=== PATIENT | female | born 1955 | race Caucasian/White ===

== ENCOUNTER 2017-10-18 18:19 | Emergency (ER) | payer MEDICARE ==
[2017-10-18] MEDS ORDERED: SODIUM CHLORIDE 0.9% 1,000 ML IV STA (20:14)
[2017-10-18] MEDS ORDERED: MECLIZINE 12.5 MG TAB PO STA (20:14)
[2017-10-18] MEDS ORDERED: KETOROLAC 30 MG/ML 1 ML VIAL IVP STA (20:30)
[2017-10-18] MEDS ORDERED: ONDANSETRON 4 MG/2 ML VIAL IVP STA (20:31)
--- NOTE | 2017-10-18 20:39 | ED ---
Headache HPI - General Chief Complaint: Headache Stated Complaint: Headache & vomiting Time Seen by Provider: 10/18/17 19:58 Source: RN notes reviewed, old records reviewed Mode of arrival: ambulatory Limitations: no limitations - History of Present Illness Initial Comments: This is a 62-year-old female presents emergency Department template of headache for the past 6 days, dizziness. She reports she has a cyst over the back of her scalp and is currently removed in 2 months. Patient states that nothing is able to keep her headache a day. Patient is concerned that she may have skin cancer on her scalp and that is also related to her headache. Patient reports she's been seen at [facility] for squamous cell carcinoma. Patient states that she feels very lightheaded. She denies any chest pain or shortness of breath. She reports she's had 6 episodes of vomiting today. - Related Data Home Medications Medication Instructions Recorded Confirmed DULoxetine HCL [Cymbalta] 120 mg PO DAILY 10/18/17 10/18/17 LORazepam [Ativan] 0.5 mg PO DAILY PRN 10/18/17 10/18/17 LORazepam [Ativan] 1 tab PO HS PRN 10/18/17 10/18/17 Naproxen Sodium [Aleve] 440 mg PO BID PRN 10/18/17 10/18/17 traZODone HCL [TraZODone HCl] 1 - 2 tab PO HS 10/18/17 10/18/17 Previous Rx's Medication Instructions Recorded Cephalexin [Keflex] 500 mg PO Q8HR #21 cap 10/18/17 HYDROcodone/APAP 5-325MG [[place] 1 tab PO Q6HR PRN #10 tab 10/18/17 5-325] Ondansetron Odt [Zofran Odt] 4 mg PO Q8HR PRN #12 tab 10/18/17 Allergies Allergy/AdvReac Type Severity Reaction Status Date / Time codeine Allergy Confusion Verified 10/18/17 20:39 diphenhydramine Allergy Confusion Verified 10/18/17 20:39 [From Benadryl] Review of Systems ROS Statement: Those systems with pertinent positive or pertinent negative responses have been documented in the HPI. ROS Other: All systems not noted in ROS Statement are negative. Past Medical History Past Medical History: Cancer Additional Past Medical History / Comment(s): hep C History of Any Multi-Drug Resistant Organisms: None Reported Past Surgical History: Section, Hysterectomy Past Psychological History: Depression Smoking Status: Current every day smoker Past Alcohol Use History: Occasional Past Drug Use History: None Reported General Exam - General Exam Comments Initial Comments: Is a well-appearing 62-year-old female. No acute distress. She does appear to be somewhat anxious. Limitations: no limitations General appearance: alert, in no apparent distress, anxious Head exam: Present: atraumatic, normocephalic, normal inspection. Absent: other (And is evidence of cysts over her scalp. A large erythematous cyst over the posterior scalp.) Eye exam: Present: normal appearance, PERRL, EOMI. Absent: scleral icterus, conjunctival injection, periorbital swelling ENT exam: Present: normal exam, mucous membranes moist Neck exam: Present: normal inspection. Absent: tenderness, meningismus, lymphadenopathy Respiratory exam: Present: normal lung sounds bilaterally Cardiovascular Exam: Present: regular rate, normal rhythm, normal heart sounds. Absent: systolic murmur, diastolic murmur, rubs, gallop, clicks GI/Abdominal exam: Present: soft, normal bowel sounds. Absent: distended, tenderness, guarding, rebound, rigid Extremities exam: Present: normal inspection, full ROM, normal capillary refill. Absent: tenderness, pedal edema, joint swelling, calf tenderness Back exam: Present: normal inspection Neurological exam: Present: alert, oriented X3, CN II-XII intact Psychiatric exam: Present: normal affect, normal mood Skin exam: Present: warm, dry, intact, normal color. Absent: rash Course Vital Signs 10/18/17 10/18/17 10/18/17 18:30 21:03 22:00 Temperature 98.5 F Pulse Rate 87 64 63 Respiratory 18 16 16 Rate Blood Pressure 150/67 141/83 O2 Sat by Pulse 98 100 98 Oximetry 10/18/17 22:55 Temperature 97.6 F Pulse Rate 62 Respiratory 18 Rate Blood Pressure 142/74 O2 Sat by Pulse 99 Oximetry Medical Decision Making - Medical Decision Making Is a 62-year-old female presents emergency Department with a chief complaint of a cyst over the back of her scalp, headache, occasional dizziness. Patient's EKG was reviewed and within normal limits. Troponin stated. All her lab work was reviewed and negative. She does have a very large cyst of the scalp. I did inject with lidocaine had some pus drainage from the area. Doesn't help with the patient on Keflex for possible cellulitis and infected cyst. Discussion is follow-up with a finance manager to have or other cyst removed in the back of her scalp. Patient has no neurological deficits, no meningeal signs. Her chest x-ray performed due to the occasional dizziness. There was some questionable lymphadenopathy or pulmonary vascular congestion. Recommended nonemergent CT. Patient was informed of this and discussed following up with her primary care provider in regards to further testing. Family understands treatment plan will comply. Return parameters were discussed. - Lab Data Result diagrams: 10/18/17 20:34 10/18/17 20:34 Lab Results 10/18/17 10/18/17 10/18/17 Range/Units 20:34 20:34 20:34 WBC 6.8 (3.8-10.6) k/uL RBC 4.11 (3.80-5.40) m/uL Hgb 13.6 (11.4-16.0) gm/dL Hct 40.1 (34.0-46.0) % MCV 97.6 (80.0-100.0) fL MCH 33.2 (25.0-35.0) pg MCHC 34.0 (31.0-37.0) g/dL RDW 13.2 (11.5-15.5) % Plt Count 154 (150-450) k/uL Neutrophils % 62 % Lymphocytes % 29 % Monocytes % 5 % Eosinophils % 3 % Basophils % 1 % Neutrophils # 4.2 (1.3-7.7) k/uL Lymphocytes # 2.0 (1.0-4.8) k/uL Monocytes # 0.4 (0-1.0) k/uL Eosinophils # 0.2 (0-0.7) k/uL Basophils # 0.1 (0-0.2) k/uL Sodium 139 (137-145) mmol/L Potassium 3.8 (3.5-5.1) mmol/L Chloride 109 H (98-107) mmol/L Carbon Dioxide 22 (22-30) mmol/L Anion Gap 8 mmol/L BUN 18 H (7-17) mg/dL Creatinine 0.84 (0.52-1.04) mg/dL Est GFR (MDRD) Af Amer >60 (>60 ml/min/1.73 sqM) Est GFR (MDRD) Non-Af >60 (>60 ml/min/1.73 sqM) Glucose 88 (74-99) mg/dL Calcium 9.7 (8.4-10.2) mg/dL Total Bilirubin 0.9 (0.2-1.3) mg/dL AST 24 (14-36) U/L ALT 23 (9-52) U/L Alkaline Phosphatase 57 (38-126) U/L Troponin I <0.012 (0.000-0.034) ng/mL Total Protein 7.7 (6.3-8.2) g/dL Albumin 4.5 (3.5-5.0) g/dL Urine Color Urine Appearance (Clear) Urine pH (5.0-8.0) Ur Specific [place] (1.001-1.035) Urine Protein (Negative) Urine Glucose (UA) (Negative) Urine Ketones (Negative) Urine Blood (Negative) Urine Nitrite (Negative) Urine Bilirubin (Negative) Urine Urobilinogen (<2.0) mg/dL Ur Leukocyte Esterase (Negative) Urine RBC (0-5) /hpf Urine WBC (0-5) /hpf Ur Squamous Epith Cells (0-4) /hpf Urine Bacteria (None) /hpf Hyaline Casts (0-2) /lpf Urine Mucus (None) /hpf Urine Opiates Screen (NotDetected) Ur Oxycodone Screen (NotDetected) Urine Methadone Screen (NotDetected) Ur Propoxyphene Screen (NotDetected) Ur Barbiturates Screen (NotDetected) U Tricyclic Antidepress (NotDetected) Ur Phencyclidine Scrn (NotDetected) Ur Amphetamines Screen (NotDetected) U Methamphetamines Scrn (NotDetected) U Benzodiazepines Scrn (NotDetected) Urine Cocaine Screen (NotDetected) U Marijuana (THC) Screen (NotDetected) 10/18/17 10/18/17 Range/Units 20:55 20:55 WBC (3.8-10.6) k/uL RBC (3.80-5.40) m/uL Hgb (11.4-16.0) gm/dL Hct (34.0-46.0) % MCV (80.0-100.0) fL MCH (25.0-35.0) pg MCHC (31.0-37.0) g/dL RDW (11.5-15.5) % Plt Count (150-450) k/uL Neutrophils % % Lymphocytes % % Monocytes % % Eosinophils % % Basophils % % Neutrophils # (1.3-7.7) k/uL Lymphocytes # (1.0-4.8) k/uL Monocytes # (0-1.0) k/uL Eosinophils # (0-0.7) k/uL Basophils # (0-0.2) k/uL Sodium (137-145) mmol/L Potassium (3.5-5.1) mmol/L Chloride (98-107) mmol/L Carbon Dioxide (22-30) mmol/L Anion Gap mmol/L BUN (7-17) mg/dL Creatinine (0.52-1.04) mg/dL Est GFR (MDRD) Af Amer (>60 ml/min/1.73 sqM) Est GFR (MDRD) Non-Af (>60 ml/min/1.73 sqM) Glucose (74-99) mg/dL Calcium (8.4-10.2) mg/dL Total Bilirubin (0.2-1.3) mg/dL AST (14-36) U/L ALT (9-52) U/L Alkaline Phosphatase (38-126) U/L Troponin I (0.000-0.034) ng/mL Total Protein (6.3-8.2) g/dL Albumin (3.5-5.0) g/dL Urine Color Yellow Urine Appearance Cloudy H (Clear) Urine pH 6.0 (5.0-8.0) Ur Specific [place] 1.022 (1.001-1.035) Urine Protein Trace H (Negative) Urine Glucose (UA) Negative (Negative) Urine Ketones Negative (Negative) Urine Blood Negative (Negative) Urine Nitrite Negative (Negative) Urine Bilirubin Negative (Negative) Urine Urobilinogen 4.0 (<2.0) mg/dL Ur Leukocyte Esterase Trace H (Negative) Urine RBC 5 (0-5) /hpf Urine WBC 5 (0-5) /hpf Ur Squamous Epith Cells 8 H (0-4) /hpf Urine Bacteria Occasional H (None) /hpf Hyaline Casts 6 H (0-2) /lpf Urine Mucus Moderate H (None) /hpf Urine Opiates Screen Not Detected (NotDetected) Ur Oxycodone Screen Not Detected (NotDetected) Urine Methadone Screen Not Detected (NotDetected) Ur Propoxyphene Screen Not Detected (NotDetected) Ur Barbiturates Screen Not Detected (NotDetected) U Tricyclic Antidepress Not Detected (NotDetected) Ur Phencyclidine Scrn Not Detected (NotDetected) Ur Amphetamines Screen Not Detected (NotDetected) U Methamphetamines Scrn Not Detected (NotDetected) U Benzodiazepines Scrn Detected H (NotDetected) Urine Cocaine Screen Not Detected (NotDetected) U Marijuana (THC) Screen Not Detected (NotDetected) 10/19/17 04:19 EKG shows sinus bradycardia 55 beats were minute.. 168 ms. QRS ration 88. QTQTC 300 438/419 [place]. No abscess elevation or T-wave inversion. No other atrial or ventricular arrhythmias. - Radiology Data Radiology results: report reviewed Chest x-ray shows no acute cardiopulmonary prominent. Left hilar prominence could relate to pulmonary arterial hypertension or adenopathy. Nonemergent CT thorax is recommended for further evaluation. Disposition Clinical Impression: Abscess, scalp Disposition: HOME SELF-CARE Condition: Good Instructions: Acute Headache (ED), Abscess Incision and Drainage (ED) Additional Instructions: Patient is to rest, follow-up with primary care provider as well as dermatology. Return to emergency department if any alarming signs or symptoms occur. Prescriptions: Cephalexin [Keflex] 500 mg PO Q8HR #21 cap HYDROcodone/APAP 5-325MG [[place] 5-325] 1 tab PO Q6HR PRN #10 tab PRN Reason: Pain Ondansetron Odt [Zofran Odt] 4 mg PO Q8HR PRN #12 tab PRN Reason: Nausea Referrals: Fabien Morejon DO [Primary Care Provider] - 1-2 days Jovan Borrero MD [REFERRING] - 1-2 days Time of Disposition: 22:35
[2017-10-18 20:48] LABS: Basophils # (A) 0.1 k/uL (0-0.2); Basophils % (A) 1 %; Eosinophils # (A) 0.2 k/uL (0-0.7); Eosinophils % (A) 3 %; HCT 40.1 % (34.0-46.0); HGB 13.6 gm/dL (11.4-16.0); Lymphocytes % (A) 29 %; MCH 33.2 pg (25.0-35.0); MCV 97.6 fL (80.0-100.0); Mean Platelet Volume 9.2; Monocytes # (A) 0.4 k/uL (0-1.0); Monocytes % (A) 5 %; Neutrophils # (A) 4.2 k/uL (1.3-7.7); Neutrophils % (A) 62 %; Platelet Count 154 k/uL (150-450); RBC 4.11 m/uL (3.80-5.40); RDW 13.2 % (11.5-15.5); WBC 6.8 k/uL (3.8-10.6)
[2017-10-18 20:57] LABS: ALT 23 U/L (9-52); AST 24 U/L (14-36); Albumin 4.5 g/dL (3.5-5.0); Alkaline Phosphatase 57 U/L (38-126); Anion Gap 8 mmol/L; Blood Urea Nitrogen 18 mg/dL (7-17); Calcium 9.7 mg/dL (8.4-10.2); Carbon Dioxide 22 mmol/L (22-30); Chloride 109 mmol/L (98-107); Glucose 88 mg/dL (74-99); Potassium 3.8 mmol/L (3.5-5.1); Sodium 139 mmol/L (137-145); Total Bilirubin 0.9 mg/dL (0.2-1.3); Total Protein 7.7 g/dL (6.3-8.2)
[2017-10-18 21:16] LABS: Appearance,Urine Cloudy (Clear); Bacteria,Urine Occasional /hpf; Bilirubin,Urine Negative (Negative); Blood,Urine Negative (Negative); Color,Urine Yellow; Glucose,Urine (UA) Negative (Negative); Hyaline Casts,Urine 6 /lpf (0-2); Ketones,Urine Negative (Negative); Leukocyte Esterase,Urine Trace (Negative); Mucus,Urine Moderate /hpf; Nitrite,Urine Negative (Negative); Protein,Urine Trace (Negative); RBC,Urine 5 /hpf (0-5); Specific Gravity,Urine 1.022 (1.001-1.035); Squamous Epithelial Cell,Urine 8 /hpf (0-4); WBC,Urine 5 /hpf (0-5)
[2017-10-18 21:55] LABS: Amphetamine Screen,Urine Not Detected (NotDetected); Barbiturate Screen,Urine Not Detected (NotDetected); Benzodiazepines Screen,Urine Detected (NotDetected); Cocaine Screen,Urine Not Detected (NotDetected); Methadone Screen, Urine Not Detected (NotDetected); Opiate Screen,Urine Not Detected (NotDetected); Oxycodone Screen, Urine Not Detected (NotDetected); Phencyclidine Screen,Urine Not Detected (NotDetected); Tricyclic Antidepressant,Urine Not Detected (NotDetected); Urn Cannabinoid Scrn Not Detected (NotDetected)
--- NOTE | 2017-10-18 22:00 | XR ---
EXAMINATION TYPE: XR chest 2V DATE OF EXAM: 10/18/2017 COMPARISON: NONE HISTORY: Cough and dizziness TECHNIQUE: Frontal and lateral views of the chest are obtained. FINDINGS: There is no focal air space opacity, pleural effusion, or pneumothorax seen. Left hilar pr ominence could relate to pulmonary arterial hypertension or adenopathy. The cardiac silhouette size i s within normal limits. The osseous structures are intact. Multilevel mild degenerative changes of the thoracic spine are noted. IMPRESSION: No acute cardiopulmonary process. Left hilar prominence could relate to pulmonary arteri al hypertension or adenopathy. Nonemergent CT thorax is recommended for further evaluation.
[2017-10-18 23:01] VITALS: BP 142/74; PULSE 62; RESP 18; TEMP 97.6
== END 2017-10-18 22:55 | disposition home or self-care (01) ==
LOC: EC 18:19
DX: L02.811 Cutaneous abscess of head [any part, except face] (principal); R11.2 Nausea with vomiting, unspecified; F32.9 Major depressive disorder, single episode, unspecified; F17.200 Nicotine dependence, unspecified, uncomplicated; Z85.828 Personal history of other malignant neoplasm of skin; Z79.899 Other long term (current) drug therapy; Z88.5 Allergy status to narcotic agent; Z88.8 Allergy status to other drugs, medicaments and biological substances
CPT/HCPCS: 99284; 96374; 96375; 96361; 36415; 93005; 80053; 84484; 85025; 81001; 80306; 71020; J2405; J1885

== ENCOUNTER → 2017-11-01 | Outpatient (CLI) | payer MEDICARE ==
--- NOTE | 2017-11-01 15:23 | CT ---
EXAMINATION TYPE: CT chest w con DATE OF EXAM: 11/01/2017 COMPARISON: X-ray 10/18/2017 HISTORY: Abnormal Xray per patient CT DLP: 489 mGycm Automated exposure control for dose reduction was used. CONTRAST: CT scan of the chest is performed with IV Contrast, patient injected with 100 mL of Omnipaque 300. FINDINGS: LUNGS: Minimal subsegmental consolidation seen in the right lung base medially. No pneumothorax or pl eural effusion. No consolidation. No overt failure. 6 mm subpleural nodule superior segment right low er lobe incidentally noted. Additional 3 mm nodule right upper lobe axial image 31. MEDIASTINUM: There are no greater than 1 cm hilar or mediastinal lymph nodes. No pericardial effusi on is seen. Aorta of normal caliber. Main pulmonary artery measures 1.9 cm. Maximal aortic dimension measures 3.2 x 3.1 cm OTHER: Hypertrophic and degenerative change spine. IMPRESSION: 1. There is a 6 mm right lower lobe pulmonary nodule subpleural location. Recommend 6 month follow-up to confirm stability
== END | disposition home or self-care (01) ==
LOC: RADCTMAIN 13:42
PROVIDERS: ATTEND Family Medicine
DX: R91.1 Solitary pulmonary nodule (principal); R59.0 Localized enlarged lymph nodes
CPT/HCPCS: 71260; Q9967

== ENCOUNTER 2017-12-13 19:33 | Emergency (ER) | payer MEDICARE ==
[2017-12-13 19:47] VITALS: RESP 20
[2017-12-13] MEDS ORDERED: LORazepam 2 MG/ML INJ IV STA (20:03)
[2017-12-13] MEDS ORDERED: LORazepam 2 MG/ML INJ IM STA (20:03)
--- NOTE | 2017-12-13 20:16 | ED ---
General Adult HPI - General Chief complaint: Fall Stated complaint: fall Time Seen by Provider: 12/13/17 19:47 Source: patient, RN notes reviewed, old records reviewed Mode of arrival: ambulatory Limitations: no limitations - History of Present Illness Initial comments: 62-year-old femalepast medical history presents for evaluation of head injury, and left wrist injury. Patient went to urgent care status post fall, while in the urgent care she did develop some posterior headache as well as some generalized shaking. She was alert during these episodes and does remember having the temperature is uncertain what this may have been. She is complaining of left knee pain left wrist pain and pain in her forehead. Uncertain if she lost consciousness. Patient believes there was momentary loss consciousness. There is no neck pain. No chest pain or abdominal pain. Patient is not on any anticoagulation. - Related Data Home Medications Medication Instructions Recorded Confirmed DULoxetine HCL [Cymbalta] 120 mg PO DAILY 10/18/17 12/13/17 LORazepam [Ativan] 0.5 mg PO DAILY PRN 10/18/17 12/13/17 LORazepam [Ativan] 1 tab PO HS 10/18/17 12/13/17 Naproxen Sodium [Aleve] 440 mg PO BID PRN 10/18/17 12/13/17 traZODone HCL [TraZODone HCl] 1 - 2 tab PO HS 10/18/17 12/13/17 Previous Rx's Medication Instructions Recorded HYDROcodone/APAP 5-325MG [[place] 1 tab PO Q6HR PRN #12 tab 12/13/17 5-325] Ibuprofen [Motrin] 600 mg PO Q8HR PRN #24 tab 12/13/17 Allergies Allergy/AdvReac Type Severity Reaction Status Date / Time codeine Allergy Confusion Verified 12/13/17 19:58 diphenhydramine Allergy Confusion Verified 12/13/17 19:58 [From Benadryl] Review of Systems ROS Statement: Those systems with pertinent positive or pertinent negative responses have been documented in the HPI. ROS Other: All systems not noted in ROS Statement are negative. Past Medical History Past Medical History: Cancer Additional Past Medical History / Comment(s): hep C History of Any Multi-Drug Resistant Organisms: None Reported Past Surgical History: Section, Hysterectomy Past Psychological History: Anxiety, Depression Smoking Status: Current every day smoker Past Alcohol Use History: Rare Past Drug Use History: None Reported General Exam Limitations: no limitations General appearance: alert, in no apparent distress Head exam: Present: normocephalic. Absent: atraumatic (Abrasion on the left zygomatic process) Eye exam: Present: normal appearance, PERRL, EOMI Neck exam: Present: normal inspection. Absent: tenderness, meningismus Respiratory exam: Present: normal lung sounds bilaterally. Absent: respiratory distress Cardiovascular Exam: Present: regular rate, normal rhythm GI/Abdominal exam: Present: soft. Absent: distended, tenderness Extremities exam: Present: other (Left knee: Abrasion, no bony tenderness. Left wrist: significant tenderness with any range of motion, there is some mild swelling at the wrist.) Neurological exam: Present: alert, oriented X3, CN II-XII intact. Absent: motor sensory deficit Psychiatric exam: Present: normal affect, normal mood Skin exam: Present: warm, dry, abrasion (Left zygomatic, left knee). Absent: cyanosis Course Vital Signs 12/13/17 19:41 Temperature 97 F L Pulse Rate 63 Respiratory 20 Rate Blood Pressure 170/77 O2 Sat by Pulse 100 Oximetry - Reevaluation(s) Reevaluation #1: 12/13/17 22:14 On reevaluation, patient is feeling better. She has persistent pain in the left hand and wrist EKG Findings - EKG Comments: EKG Findings:: EKG shows normal sinus rhythm, ventricular rate 70, UT interval 168, castration 82, QTC 438 no signs of ischemia Procedures - Orthopedic Splinting/Casting Injury #1 Side: left Upper Extremity Injury Location: hand Upper Extremity Immobilizer: ulnar gutter Additional Comments: Neurovascular exam is intact both pre-and post-splinting Medical Decision Making - Medical Decision Making 62-year-old female presenting status post fall with head injury and multiple abrasions, as well as left hand and wrist pain. CT is obtained, is negative for acute intracranial pathology. CT C-spine negative for fracture subluxation. Facial bone CT is negative for acute bony abnormality. Chest x- ray obtained, negative for acute findings. X-ray of the knee and pelvis are unremarkable. Laboratory studies include CBC CMP and urinalysis are within normal limits. Patient is placed in a splint for her fourth and fifth metacarpal fractures of the left hand. This is her primary pain complaint. Her tetanus is updated. She was prescribed pain medications and will follow-up with hand surgery regarding these fractures. - Lab Data Result diagrams: 12/13/17 20:12 12/13/17 20:12 Lab Results 12/13/17 12/13/17 12/13/17 Range/Units 20:12 20:12 20:12 WBC 8.9 (3.8-10.6) k/uL RBC 3.96 (3.80-5.40) m/uL Hgb 13.4 (11.4-16.0) gm/dL Hct 38.1 (34.0-46.0) % MCV 96.0 (80.0-100.0) fL MCH 33.8 (25.0-35.0) pg MCHC 35.2 (31.0-37.0) g/dL RDW 11.6 (11.5-15.5) % Plt Count 174 (150-450) k/uL Neutrophils % 66 % Lymphocytes % 27 % Monocytes % 5 % Eosinophils % 1 % Basophils % 1 % Neutrophils # 5.8 (1.3-7.7) k/uL Lymphocytes # 2.4 (1.0-4.8) k/uL Monocytes # 0.4 (0-1.0) k/uL Eosinophils # 0.1 (0-0.7) k/uL Basophils # 0.1 (0-0.2) k/uL Sodium 144 (137-145) mmol/L Potassium 3.7 (3.5-5.1) mmol/L Chloride 109 H (98-107) mmol/L Carbon Dioxide 19 L (22-30) mmol/L Anion Gap 16 mmol/L BUN 16 (7-17) mg/dL Creatinine 0.60 (0.52-1.04) mg/dL Est GFR (MDRD) Af Amer >60 (>60 ml/min/1.73 sqM) Est GFR (MDRD) Non-Af >60 (>60 ml/min/1.73 sqM) Glucose 81 (74-99) mg/dL Calcium 10.0 (8.4-10.2) mg/dL Magnesium 2.0 (1.6-2.3) mg/dL Total Bilirubin 1.3 (0.2-1.3) mg/dL AST 21 (14-36) U/L ALT 16 (9-52) U/L Alkaline Phosphatase 65 (38-126) U/L Total Protein 7.3 (6.3-8.2) g/dL Albumin 4.5 (3.5-5.0) g/dL Urine Color Light Yellow Urine Appearance Clear (Clear) Urine pH 7.0 (5.0-8.0) Ur Specific [place] 1.006 (1.001-1.035) Urine Protein Negative (Negative) Urine Glucose (UA) Negative (Negative) Urine Ketones 1+ H (Negative) Urine Blood Negative (Negative) Urine Nitrite Negative (Negative) Urine Bilirubin Negative (Negative) Urine Urobilinogen <2.0 (<2.0) mg/dL Ur Leukocyte Esterase Negative (Negative) Disposition Clinical Impression: Fall, Concussion, Facial abrasion, Metacarpal bone fracture Disposition: HOME SELF-CARE Condition: Good Instructions: Abrasion (ED), Concussion (ED), Hand Fracture (ED) Prescriptions: HYDROcodone/APAP 5-325MG [[place] 5-325] 1 tab PO Q6HR PRN #12 tab PRN Reason: Pain Ibuprofen [Motrin] 600 mg PO Q8HR PRN #24 tab PRN Reason: Pain Referrals: Fabien Morejon DO [Primary Care Provider] - 1-2 days Jhoan Pastrana DO [Doctor of Osteopathic Medicine] - 1-2 days Time of Disposition: 22:29
[2017-12-13 20:26] LABS: Appearance,Urine Clear (Clear); Bilirubin,Urine Negative (Negative); Blood,Urine Negative (Negative); Color,Urine Light Yellow; Glucose,Urine (UA) Negative (Negative); Ketones,Urine 1+ (Negative); Leukocyte Esterase,Urine Negative (Negative); Protein,Urine Negative (Negative); Specific Gravity,Urine 1.006 (1.001-1.035); Urobilinogen,Urine <2.0 mg/dL (<2.0)
[2017-12-13 20:29] LABS: Basophils # (A) 0.1 k/uL (0-0.2); Basophils % (A) 1 %; Eosinophils # (A) 0.1 k/uL (0-0.7); Eosinophils % (A) 1 %; HCT 38.1 % (34.0-46.0); HGB 13.4 gm/dL (11.4-16.0); Lymphocytes # (A) 2.4 k/uL (1.0-4.8); Lymphocytes % (A) 27 %; MCH 33.8 pg (25.0-35.0); MCHC 35.2 g/dL (31.0-37.0); Mean Platelet Volume 8.9; Monocytes # (A) 0.4 k/uL (0-1.0); Monocytes % (A) 5 %; Neutrophils # (A) 5.8 k/uL (1.3-7.7); Neutrophils % (A) 66 %; Platelet Count 174 k/uL (150-450); RBC 3.96 m/uL (3.80-5.40); RDW 11.6 % (11.5-15.5); WBC 8.9 k/uL (3.8-10.6)
[2017-12-13 20:36] LABS: ALT 16 U/L (9-52); AST 21 U/L (14-36); Albumin 4.5 g/dL (3.5-5.0); Alkaline Phosphatase 65 U/L (38-126); Anion Gap 16 mmol/L; Blood Urea Nitrogen 16 mg/dL (7-17); Carbon Dioxide 19 mmol/L (22-30); Chloride 109 mmol/L (98-107); Glucose 81 mg/dL (74-99); Potassium 3.7 mmol/L (3.5-5.1); Sodium 144 mmol/L (137-145); Total Bilirubin 1.3 mg/dL (0.2-1.3); Total Protein 7.3 g/dL (6.3-8.2)
--- NOTE | 2017-12-13 20:57 | CT ---
EXAMINATION TYPE: CT brain cspine wo con DATE OF EXAM: 12/13/2017 COMPARISON: NONE HISTORY: Fall. CT DLP: 1272.4 mGycm Automated exposure control for dose reduction was used. TECHNIQUE: CT scan of the head and cervical spine are performed without contrast. FINDINGS: There is no acute intracranial hemorrhage, mass effect, or midline shift identified. The ventricles and sulci are within normal limits in size. The globes are intact and the visualized sin uses are clear. Cervical spine is visualized in its entirety from C1 through upper thoracic levels and demonstrates s atisfactory alignment without evidence of acute fracture or dislocation. Prevertebral soft tissue ap pears within normal limits. The C1-C2 articulation is unremarkable. IMPRESSION: 1. There is no acute fracture or dislocation evident in the cervical spine. 2. No acute intracranial hemorrhage, mass effect, or midline shift is seen.
[2017-12-13] MEDS ORDERED: SODIUM CHLORIDE 0.9% 1,000 ML IV SCH (21:00)
--- NOTE | 2017-12-13 21:01 | CT ---
EXAMINATION TYPE: CT facial bones wo con DATE OF EXAM: 12/13/2017 COMPARISON: NONE HISTORY: Fall. CT DLP: 723.4 mGycm Automated exposure control for dose reduction was used. TECHNIQUE: CT scan of the sinuses is performed without contrast, axial images are obtained, coronal r eformatted images are also reviewed. FINDINGS: The examination of the facial skeleton and skull base is negative for fracture or malalignm ent. The orbits are intact. Paranasal sinuses and mastoid sinus air cells and middle ear cavities are clear. No incidental findings. IMPRESSION: NO ACUTE PROCESS.
--- NOTE | 2017-12-13 21:43 | XR ---
EXAMINATION: XR chest 2V DATE AND TIME: 12/13/2017 9:03 PM ORDERING PROVIDER: Jarret Vaca CLINICAL INDICATION: Pain after fall TECHNIQUE: PA and lateral COMPARISON: 10/18/2017 DESCRIPTION: The lungs are clear. The pleural spaces are negative. The cardiac silhouette is not enlarged. The mediastinal and pleural silhouettes are unremarkable. The skeletal structures are dated for fracture or malalignment. The soft tissues are unremarkable. IMPRESSION: NO ACUTE PROCESS.
--- NOTE | 2017-12-13 21:46 | XR ---
PROCEDURE: XR wrist complete LT-4 views DATE AND TIME: 12/13/2017 9:03 PM REFERRING PHYSICIAN: Jarret Vaca CLINICAL INDICATION: PHH, Pain TECHNIQUE: Department protocol. COMPARISON: None FINDINGS: There is evidence of fractures involving the base of the fourth and fifth metacarpals. 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 The soft tissues are unremarkable. IMPRESSION: Cannot exclude fractures involving the base of the fourth and fifth metacarpals. Dedicated hand radio graphs can further characterize.
--- NOTE | 2017-12-13 21:47 | XR ---
PROCEDURE: XR pelvis AP view DATE AND TIME: 12/13/2017 9:03 PM REFERRING PHYSICIAN: Jarret Vaca CLINICAL INDICATION: PHH, Pain TECHNIQUE: One view, AP. COMPARISON: None FINDINGS: There is no fracture or malalignment. The soft tissues are unremarkable. IMPRESSION: NO ACUTE PROCESS.
--- NOTE | 2017-12-13 21:48 | XR ---
PROCEDURE: XR knee complete LT - 3V DATE AND TIME: 12/13/2017 9:03 PM REFERRING PHYSICIAN: Jarret Vaca CLINICAL INDICATION: PHH, Pain TECHNIQUE: Department protocol. COMPARISON: None FINDINGS: There is no fracture or malalignment. The soft tissues are unremarkable. IMPRESSION: NO ACUTE PROCESS.
[2017-12-13] MEDS ORDERED: KETOROLAC 30 MG/ML 1 ML VIAL IVP STA (22:12)
[2017-12-13 22:21] VITALS: BP 141/80; PULSE 70; TEMP 97.8
== END 2017-12-13 23:04 | disposition home or self-care (01) ==
LOC: EC 19:33
DX: S62.315A Displaced fracture of base of fourth metacarpal bone, left hand, initial encounter for closed fracture (principal); S62.317A Displaced fracture of base of fifth metacarpal bone, left hand, initial encounter for closed fracture; S80.212A Abrasion, left knee, initial encounter; S00.81XA Abrasion of other part of head, initial encounter; F41.9 Anxiety disorder, unspecified; F32.9 Major depressive disorder, single episode, unspecified; F17.200 Nicotine dependence, unspecified, uncomplicated; Z85.9 Personal history of malignant neoplasm, unspecified; Z79.899 Other long term (current) drug therapy; Z88.5 Allergy status to narcotic agent; Z88.8 Allergy status to other drugs, medicaments and biological substances; W01.0XXA Fall on same level from slipping, tripping and stumbling without subsequent striking against object, initial encounter; Y92.89 Other specified places as the place of occurrence of the external cause
CPT/HCPCS: 99285 ×2; 29125 ×2; 96374 ×2; 96375 ×2; 96361 ×3; 96372 ×2; 36415; 93005; 80053; 83735; 85025; 81003; 72170; 73110; 73562; 71046; 72125; 70486; 70450; J2060; J1885

== ENCOUNTER → 2018-05-07 | Outpatient (CLI) | payer MEDICARE ==
--- NOTE | 2018-05-07 16:41 | CT ---
EXAMINATION TYPE: CT chest wo con DATE OF EXAM: 05/07/2018 COMPARISON: Prior chest CT November 01, 2017 HISTORY: Solitary pulmonary nodule CT DLP: 140.5 mGycm. Automated Exposure Control for Dose Reduction was Utilized. TECHNIQUE: CT scan of the thorax is performed without IV contrast. FINDINGS: LUNGS: Previously described 6 mm subpleural nodule posterior medial superior aspect right lower lobe is contiguous with the chest wall and has fat and soft tissue density measuring 9 x 4 mm current stud y image 35 not significantly changed in size or appearance from prior exam strongly favored benign. N o suspicious new nodule or mass is identified. There is focal scarring medial right lung base axial i mage 52 redemonstrated. There is stable 3 mm nodule anterior right upper lobe axial image 29. No pleu ral effusion or pneumothorax is noted bilaterally. Tracheobronchial tree is patent. MEDIASTINUM: Lack of IV contrast is noted to limit evaluation for mediastinal and especially hilar ad enopathy. There are no definitive greater than 1 cm hilar or mediastinal lymph nodes. No cardiomega ly or pericardial effusion is seen. OTHER: There is mild to moderate multilevel spurring in the thoracic spine redemonstrated IMPRESSION: Overall stable findings, no new nodules identified. Consider follow-up CT in one year james e to ensure benign based on Fleischner Society recommendations.
== END | disposition home or self-care (01) ==
LOC: RADCTMAIN 16:05
PROVIDERS: ATTEND Family Medicine
DX: R91.1 Solitary pulmonary nodule (principal)
CPT/HCPCS: 71250